=== PATIENT | male | born 1955 | race Caucasian/White ===

== ENCOUNTER → 2021-07-09 00:30 | Outpatient (CLI) | payer OTHER, SELFPAY ==
[2021-07-09 16:56] LABS: SARS-CoV-2 RNA PCR Positive
== END ==
PROVIDERS: PCP Family Medicine; Visit Provider Family Medicine
DX: U07.1 COVID-19 (principal)
CPT/HCPCS: C9803; U0003; U0005

== ENCOUNTER 2021-08-25 11:56 | Outpatient (CLI) | payer OTHER, SELFPAY ==
--- NOTE | ~2021-08-25 | XR_ITS ---
EXAMINATION: XR hip RT 2V w AP pelvis EXAM DATE: 08/25/2021 13:05 INDICATION: M25.551 - Pain in right hip. TECHNIQUE: Right hip frontal, 'frog leg' projections for interpretation. Frontal projection pelvis. There is no prior study for comparison. FINDINGS: There is severe right hip osteoarthritis with complete loss of the right hip joint space, s ome chronic flattening of the right femoral head. Could be secondary to avascular necrosis or other i njury given the asymmetry, that there is only mild contralateral primary osteoarthritis. There are no acute fractures or dislocations identified. There is no subcutaneous gas. The soft tissue is unrem arkable. There are no radiopaque foreign bodies. IMPRESSION: Severe right hip osteoarthritis. Reviewed, dictated and finalized at location A. TOR DRIVER
[2021-08-25 18:50] LABS: Hematocrit 45.3 % (42.0-52.0); Hemoglobin 14.4 g/dL (14.0-18.0); Mean Corpuscular HGB Conc 31.8 g/dl (32-36); Mean Corpuscular Hemoglobin 27.4 pg (26-34); Mean Corpuscular Volume 86.1 fl (80-100); Mean Platelet Volume 9.2 fl (7.4-10.4); Platelet Count Result 227 k/mm3 (150-375); Red Blood Count 5.26 M/mm3 (4.6-6.20); Red Cell Distribution Width 14.8 % (11.5-14.5)
[2021-08-25 19:09] LABS: Alanine Aminotransferase 21 U/L (4-50); Albumin Level 4.2 g/dL (3.5-5.1); Alkaline Phosphatase 126 U/L (38-126); Anion Gap 14 mmol/L (8-16); Aspartate Amino Transferase 23 U/L (17-59); Bilirubin,Total 0.9 mg/dL (0.2-1.3); Blood Urea Nitrogen 15 mg/dL (9-20); Calcium 9.4 mg/dL (8.4-10.2); Carbon Dioxide 24 mmol/L (22-30); Chloride 97 mmol/L (98-107); Cholesterol 237 mg/dL (0-200); Estimated Glomerular Filt Rate > 60; Glucose 290 mg/dL (65-110); HDL Direct 46 mg/dL; Potassium 4.4 mmol/L (3.4-5.0); Sodium 135 mmol/L (137-145); Triglycerides 254 mg/dL (<150)
[2021-08-25 19:25] LABS: LDL Cholesterol Direct 151 mg/dL
[2021-08-25 19:38] LABS: Prostate Specific Antigen 0.5 ng/mL (< OR = 4.0)
[2021-08-25 20:15] LABS: Free T4 Free Thyroxine Reflex 1.16 ng/dL (0.78-2.19)
[2021-08-25 20:59] LABS: Total Triiodothyronine (T3) 1.66 NG/ML (0.97-1.69)
== END 2021-08-25 11:57 | disposition home or self-care (01) ==
LOC: ANHBWCLAB 11:57
PROVIDERS: PCP Family Medicine; Visit Provider Family Medicine
DX: E11.9 Type 2 diabetes mellitus without complications (principal); D64.9 Anemia, unspecified; E66.9 Obesity, unspecified; M25.551 Pain in right hip
CPT/HCPCS: 36415; 73502; 80053; 80061; 83036; 84153; 84439; 84443; 84480; 85027; G0103

== ENCOUNTER 2022-02-24 15:02 | Outpatient (CLI) | payer OTHER, SELFPAY ==
[2022-02-24 20:09] LABS: Alanine Aminotransferase 18 U/L (6-50); Albumin Level 3.9 g/dL (3.5-5.1); Alkaline Phosphatase 111 U/L (38-126); Anion Gap 8 mmol/L (8-16); Aspartate Amino Transferase 22 U/L (17-59); Blood Urea Nitrogen 12 mg/dL (9-20); Calcium 8.6 mg/dL (8.4-10.2); Carbon Dioxide 26 mmol/L (22-30); Chloride 101 mmol/L (98-107); Cholesterol 208 mg/dL (0-200); Estimated Glomerular Filt Rate > 60; Glucose 198 mg/dL (65-110); HDL Direct 39 mg/dL; Potassium 4.2 mmol/L (3.4-5.0); Sodium 135 mmol/L (137-145); Triglycerides 173 mg/dL (<150); Uric Acid 7.7 mg/dL (3.5-8.5)
[2022-02-24 20:19] LABS: Hemoglobin A1C 9.1 % (<5.7)
[2022-02-24 20:21] LABS: LDL Cholesterol Direct 137 mg/dL
[2022-02-24 20:32] LABS: Creatinine Urine 310.9 mg/dL
[2022-02-24 20:37] LABS: MALB Creatinine Ratio 22.7 mg/g (0-30); Microalbumin Urine Random 70.7 mg/L (0-16.7)
== END 2022-02-24 15:03 | disposition home or self-care (01) ==
PROVIDERS: PCP Family Medicine; Visit Provider Family Medicine
DX: E11.9 Type 2 diabetes mellitus without complications (principal); M10.9 Gout, unspecified
CPT/HCPCS: 36415; 80053; 80061; 82043; 83036; 84550

== ENCOUNTER 2022-06-02 14:40 | Outpatient (CLI) | payer OTHER, SELFPAY ==
[2022-06-02 21:46] LABS: Hemoglobin A1C 7.4 % (<5.7)
== END 2022-06-02 14:41 | disposition home or self-care (01) ==
LOC: ANHBWCLAB 14:41
PROVIDERS: PCP Family Medicine; Visit Provider Family Medicine
DX: E11.9 Type 2 diabetes mellitus without complications (principal)
CPT/HCPCS: 36415; 83036

== ENCOUNTER 2023-07-12 13:54 | Outpatient (CLI) | payer MEDICARE, MEDICAID, SELFPAY ==
[2023-07-12 19:19] LABS: Creatinine Urine 150.3 mg/dL
[2023-07-12 19:23] LABS: MALB Creatinine Ratio 26.7 mg/g (0-30); Microalbumin Urine Random 40.1 mg/L (0-16.7)
[2023-07-12 19:28] LABS: Alanine Aminotransferase 16 U/L (6-50); Alkaline Phosphatase 102 U/L (38-126); Anion Gap 6 mmol/L (8-16); Aspartate Amino Transferase 26 U/L (17-59); Bilirubin,Total 1.1 mg/dL (0.2-1.3); Blood Urea Nitrogen 16 mg/dL (9-20); Calcium 8.8 mg/dL (8.4-10.2); Carbon Dioxide 26 mmol/L (22-30); Chloride 102 mmol/L (98-107); Cholesterol 230 mg/dL (0-200); Estimated Glomerular Filt Rate > 60; Glucose 149 mg/dL (65-110); HDL Direct 41 mg/dL; Potassium 4.6 mmol/L (3.4-5.0); Sodium 134 mmol/L (137-145); Triglycerides 106 mg/dL (<150)
[2023-07-12 19:39] LABS: LDL Cholesterol Direct 142 mg/dL
[2023-07-12 19:47] LABS: Basophils Percent Auto 0.5 % (0.2-1.2); Eosinophils Absolute Auto 0.2 K/mm3 (0-0.3); Eosinophils Percent Auto 2.3 % (0-4.4); Hemoglobin 13.9 g/dL (14.0-18.0); Immature Granulocyte Absolute 0.05 K/mm3 (0.00-0.031); Immature Granulocyte Percent A 0.6 % (0-0.5); Lymphocytes Absolute Auto 2.27 K/mm3 (0.9-3.2); Lymphocytes Percent Auto 27.3 % (18.3-44.2); Mean Corpuscular HGB Conc 30.9 g/dl (32-36); Mean Corpuscular Hemoglobin 27.1 pg (26-34); Mean Corpuscular Volume 87.9 fl (80-100); Mean Platelet Volume 9.6 fl (7.4-10.4); Monocytes Absolute Auto 0.5 K/mm3 (0.1-0.6); Monocytes Percent Auto 6.2 % (2.6-8.5); Neutrophils Absolute Auto 5.3 K/mm3 (1.3-6.7); Neutrophils Percent Auto 63.1 % (45.5-73.1); Platelet Count Result 239 k/mm3 (150-375); Red Blood Count 5.12 M/mm3 (4.6-6.20); Red Cell Distribution Width 14.3 % (11.5-14.5); White Blood Count 8.3 K/mm3 (4.5-10.0)
[2023-07-13 17:50] LABS: Prostate Specific Antigen 0.5 ng/mL (< OR = 4.0)
== END 2023-07-12 13:55 | disposition home or self-care (01) ==
PROVIDERS: PCP Family Medicine; Visit Provider Family Medicine
DX: E11.9 Type 2 diabetes mellitus without complications (principal); M10.9 Gout, unspecified; Z12.5 Encounter for screening for malignant neoplasm of prostate
CPT/HCPCS: 36415; 80053; 80061; 82043; 83036; 84153; 85025; G0103

== ENCOUNTER 2023-10-19 14:28 | Outpatient (CLI) | payer MEDICARE, MEDICAID, SELFPAY ==
[2023-10-25 14:59] LABS: Testosterone Free 53.8 pg/mL (35.0-155.0); Testosterone Total 289 ng/dL (250-1100)
== END 2023-10-19 14:29 | disposition home or self-care (01) ==
PROVIDERS: PCP Family Medicine; Visit Provider Family Medicine
DX: E11.9 Type 2 diabetes mellitus without complications (principal); E66.9 Obesity, unspecified; R06.00 Dyspnea, unspecified
CPT/HCPCS: 36415; 84402; 84403

== ENCOUNTER 2023-11-04 12:04 | Outpatient (CLI) | payer MEDICARE, MEDICAID, SELFPAY ==
[2023-11-07 15:18] LABS: Testosterone Free 40.3 pg/mL (35.0-155.0); Testosterone Total 184 ng/dL (250-1100)
== END 2023-11-04 12:05 | disposition home or self-care (01) ==
PROVIDERS: PCP Family Medicine; Visit Provider Family Medicine
DX: E66.9 Obesity, unspecified (principal)
CPT/HCPCS: 36415; 84402; 84403

== ENCOUNTER 2024-02-21 14:04 | Outpatient (CLI) | payer MEDICARE, MEDICAID, SELFPAY ==
[2024-02-21 19:31] LABS: Hematocrit 44.4 % (42.0-52.0); Hemoglobin 13.9 g/dL (14.0-18.0); Mean Corpuscular HGB Conc 31.3 g/dl (32-36); Mean Corpuscular Hemoglobin 27.1 pg (26-34); Mean Corpuscular Volume 86.5 fl (80-100); Mean Platelet Volume 9.9 fl (7.4-10.4); Platelet Count Result 234 k/mm3 (150-375); Red Blood Count 5.13 M/mm3 (4.6-6.20); Red Cell Distribution Width 14.3 % (11.5-14.5); White Blood Count 11.5 K/mm3 (4.5-10.0)
[2024-02-21 19:34] LABS: Creatinine Urine 232.4 mg/dL
[2024-02-21 19:37] LABS: MALB Creatinine Ratio 19.1 mg/g (0-30); Microalbumin Urine Random 44.4 mg/L (0-16.7)
[2024-02-21 20:10] LABS: Alanine Aminotransferase 15 U/L (6-50); Albumin Level 4.1 g/dL (3.5-5.1); Alkaline Phosphatase 81 U/L (38-126); Anion Gap 7 mmol/L (4-12); Aspartate Amino Transferase 34 U/L (17-59); Blood Urea Nitrogen 15 mg/dL (9-20); Calcium 8.9 mg/dL (8.4-10.2); Carbon Dioxide 27 mmol/L (22-30); Chloride 104 mmol/L (98-107); Estimated Glomerular Filt Rate > 60; Glucose 115 mg/dL (65-110); Potassium 4.2 mmol/L (3.4-5.0); Sodium 138 mmol/L (137-145)
[2024-02-21 21:43] LABS: Hemoglobin A1C 5.4 % (<5.7)
== END 2024-02-21 14:05 | disposition home or self-care (01) ==
PROVIDERS: PCP Family Medicine; Visit Provider Family Medicine
DX: D64.9 Anemia, unspecified (principal); E11.9 Type 2 diabetes mellitus without complications; E66.9 Obesity, unspecified; I10 Essential (primary) hypertension; R79.89 Other specified abnormal findings of blood chemistry
CPT/HCPCS: 36415; 80053; 82043; 83036; 85027

== ENCOUNTER 2024-09-18 13:06 | Outpatient (CLI) | payer MEDICARE, MEDICAID, SELFPAY ==
[2024-09-18 19:27] LABS: Hematocrit 42.9 % (42.0-52.0); Hemoglobin 14.2 g/dL (14.0-18.0); Mean Corpuscular HGB Conc 33.1 g/dl (32-36); Mean Corpuscular Hemoglobin 28.3 pg (26-34); Mean Corpuscular Volume 85.6 fl (80-100); Mean Platelet Volume 9.6 fl (7.4-10.4); Platelet Count Result 225 k/mm3 (150-375); Red Blood Count 5.01 M/mm3 (4.6-6.20); Red Cell Distribution Width 14.2 % (11.5-14.5); White Blood Count 7.5 K/mm3 (4.5-10.0)
[2024-09-18 19:28] LABS: Alanine Aminotransferase 13 U/L (6-50); Albumin Level 3.9 g/dL (3.5-5.1); Alkaline Phosphatase 85 U/L (38-126); Anion Gap 6 mmol/L (4-12); Aspartate Amino Transferase 30 U/L (17-59); Bilirubin,Total 1.4 mg/dL (0.2-1.3); Blood Urea Nitrogen 11 mg/dL (9-20); Calcium 8.9 mg/dL (8.4-10.2); Carbon Dioxide 28 mmol/L (22-30); Chloride 103 mmol/L (98-107); Estimated Glomerular Filt Rate > 60; Glucose 100 mg/dL (65-110); Potassium 3.8 mmol/L (3.4-5.0); Sodium 137 mmol/L (137-145)
[2024-09-18 20:30] LABS: Creatinine Urine 171.5 mg/dL
[2024-09-18 20:33] LABS: MALB Creatinine Ratio 38.1 mg/g (0-30); Microalbumin Urine Random 65.3 mg/L (0-16.7)
[2024-09-18 21:06] LABS: Hemoglobin A1C 5.1 % (<5.7)
== END 2024-09-18 13:07 | disposition home or self-care (01) ==
PROVIDERS: PCP Family Medicine; Visit Provider Family Medicine
DX: E11.9 Type 2 diabetes mellitus without complications (principal); D64.9 Anemia, unspecified; I10 Essential (primary) hypertension; I63.9 Cerebral infarction, unspecified; R79.89 Other specified abnormal findings of blood chemistry; M10.9 Gout, unspecified; Z12.11 Encounter for screening for malignant neoplasm of colon
CPT/HCPCS: 36415; 80053; 82043; 83036; 85027

== ENCOUNTER 2025-05-21 13:34 | Outpatient (CLI) | payer MEDICARE, MEDICAID, SELFPAY ==
--- OUTSIDE RECORDS SUMMARY | 2025-05-21 13:41 | XMS_ITS | Clinical Summary ---
Author Organization [facility] Address [address] [place] [address] Phone Care Team Providers Care Weight Count Operator Name Role Phone Marcia Ruiz Primary Care Provider [phone] Allergies No known active allergies Medications acetaminophen (TYLENOL) 325 MG Tablet Take 650 mg by mouth every 4 hours as needed. Active metFORMIN (GLUCOPHAGE) 500 MG Tablet Take 500 mg by mouth daily. Active ALLOPURINOL PO Take 100 mg by mouth daily as needed. Active Misc Natural Products (TART BECK ADVANCED PO) Take by mouth daily. Active indomethacin (INDOCIN) 50 MG CapsuleIndications:USU ALLY TAKES 3 TIMES A WEEK IN COMBINATION W/TYLENOL Take 50 mg by mouth daily as needed. Indications: USUALLY TAKES 3 TIMES A WEEK IN COMBINATION W/TYLENOL Active losartan 50 MG TABS 50 mg, hydroCHLOROthiazide 12.5 MG TABS 12.5 mgIndications:USUALLY TAKES 4-5 DAYS A WEEK Take by mouth daily. Indications: USUALLY TAKES 4-5 DAYS A WEEK Active aspirin 325 MG Tablet Take 1 Tab by mouth daily. 100 Tab 019 Active insulin glargine (LANTUS) 100 UNIT/ML Solution 40 Units by Subcutaneous route nightly. 1 Vial 019 Active insulin lispro (HUMALOG) 100 UNIT/ML Solution Inject 18 units SQ with each meal and if BS: 71 - 140 NO INSULIN 141 - 155 NO INSULIN 156 - 170 NO INSULIN 171 - 185 +1 UNITS 186 - 200 +2 UNITS 201 - 215 +3 UNITS 216 - 230 +4 UNITS 231 - 245 +5 UNITS 246 - 260 +6 UNITS 261 - 275 +7 UNITS 276 - 290 +8 UNITS 291 - 300 +9 UNITS ABOVE 300 +10 UNITS 1 Vial 019 Active Active Problems Problem Noted Date Diagnosed Date Primary osteoarthritis of both knees 04/05/2019 Family History Medical History Relation Name Comments Alcohol Abuse Father Cancer Father Cancer Mother Relation Name Status Comments Father Mother Social History Tobacco Use Types Packs/Day Years Used Date Smoking Tobacco: Never Smokeless Tobacco: Never Alcohol Use Standard Drinks/Week Comments Not Currently 0 (1 standard drink = 0.6 oz pur e alcohol) HASN'T DRANK SINCE AGE 42 Sex and Gender Information Value Date Recorded Sex Assigned at Not on file Legal Sex Male 10:18 PM CDT Gender Identity Not on file Sexual Orientation Not on file Last Filed Vital Signs Vital Sign Reading Time Taken Comments Blood Pressure 119/78 04/11/2019 3:41 PM CDT Pulse 71 04/11/2019 3:41 PM CDT Temperature 36.8 C (98.2 F) 04/11/2019 3:41 PM CDT Respiratory Rate 18 04/11/2019 3:41 PM CDT Oxygen Saturation 95% 04/11/2019 8:2 5 AM CDT Inhaled Oxygen Concentration - - Weight 172.4 kg (380 lb) 04/05/2019 9:2 5 AM CDT pt states 380-390 Height 175.3 cm (5' 9) 04/05/2019 9:25 AM CDT Body Mass Index 56.12 04/05/2019 9:25 AM CDT Plan of Treatment Health Maintenance Due Date Last Done Comments Hepatitis C Virus (HCV) Screening 1957 Cologuard 2002 Colonoscopy 2002 Colorectal Cancer Screening 2002 Immunochemical Fecal Occult Blood 2002 Pneumococcal Immunization (5 0+ years) (1 of 1 - PCV) 2007 Zoster Immunization (1 of 2) 2007 SARS-COV-2 Immunization (4 - season) 2024 10/09/2021, 02/02/2021, 01/12/2021 Influenza Immunization (#1) 2025 10/20/2016 Respiratory Syncytial Virus (RSV) Immunization (Adult) (1 - 1-dose 75+ series) 2032 DTaP/Tdap/Td Immunization Discontinued 03/15/2018 TdaP Immunization Completed 03/15/2018 Hepatitis B Immunization Aged Out No longer eligible based on patient's age to complete this topic Human Papillomavirus (HPV) Immunization Aged Out No longer eligible based on patient's age to complete this topic Meningococcal Immunization (ACWY) Aged Out No longer eligible based on patient's age to complete this topic Rotavirus Immunization Aged Out No lo nger eligible based on patient's age to complete this topic Medical Devices Implanted Type Area Header Set Up Operator Device Identifier Shelf Expiration Date Model / Serial / Lot Insert Tib 5 9mm Knee X3 Cruciate Substitute Triathlon - [id number] Implanted:Qty: 1 on 04/05/2019 by [facility] IMPLANT Right: Knee [employer] 01/18/2024 5531-G-509 / 5531-G-509 / [id number] Component Fem 5 Knee Right Cruciate Retain Bead [employer]lon Pa - [id number] Implanted:Qty: 1 on 04/05/2019 by [facility] at [facility] IMPLANT Right: Knee [employer] 02/13/2024 5517-F-502 / [id number]-F-502 / [id number] Insert Tib 7 9mm Knee X3 Cruciate Substitute [employer]lon - [id number] Implanted:Qty: 1 on 04/05/2019 by Angel [facility]blood MD at [facility] IMPLANT Left: Knee [employer] 10/22/2023 5531-G-709 / 5531-G-709 / [id number] Knee Femoral Component Beaded With Pa Cementless Cruciate Retaining Triathlon Left Size 6 - [id number] Implanted:Qty: 1 on 04/05/2019 by Angel Youngblood MD at [facility] IMPLANT Left: Knee [employer] 09/23/2022 5517-F-601 / 5517-F-601 / [id number] Floseal Hemostatic Matrix, 10 Ml Implanted:Qty: 2 on 04/05/2019 by Angel Youngblood MD at [facility] Bilatera l: Knee [employer] 07/21/2020 [id number] / [id number] / [id number] Triathlon Tritanium Tibial Component Implanted:Qty: 1 on 04/05/2019 by Angel Youngblood MD at [facility] Right: Knee LIVE 02/09/2024 5536-B-500 / 5536-B-500 / [id number] [employer]lon Tritanium Asymmetric Patella Implanted:Qty: 1 on 04/05/2019 by Angel Youngblood MD at [facility] Right: Knee LIVE / ORTHOPAEDICS 12/10/2022 5552-L-401 / 5552-L-401 / [id number] [employer]lon Tritanium Tibial Component Implanted:Qty: 1 on 04/05/2019 by Angel Youngblood MD at [facility] Left: Knee LIVE / ORTHOPAEDICS 11/01/2023 5536-B-700 / 5536-B-700 / [id number] [employer]lon Tritanium Asymmetric Patella Implanted:Qty: 1 on 04/05/2019 by Angel Youngblood MD at [facility] Left: Knee [employer] / ORTHOPAEDICS 07/25/2023 5552-L-401 / 5552-L-401 / [id number] Insurance [place]ID [place] Care Teams Weight Count Operator Relationship Specialty Start Date End Date Marcia Ruiz PA [address] [address] PCP - General Adult Medicine 01/23/19
--- OUTSIDE RECORDS SUMMARY | 2025-05-21 13:41 | XMS_ITS | Encounter Summary ---
Author Organization [facility] Address [address] [place] [address] Care Team Providers Care Environmental Services Supervisor Name Role Phone Tash Marr PT Unavailable Unavailable Angel Youngblood MD Unavailable [phone] Alma Delia Antonio DO Primary Care Provider [phone] Francesco Camara PT Unavailable Unavailable Nav Love MD Primary Care Provider [phone] Reason for Visit * Reason Onset Date Comments Scheduling Appointments 03/21/2020 Called f or fluoro guided injection appointment Encounter Details Date Type Department Care Team (Late st Contact Info) Description 03/21/2020 Telephone [facility] [address] [place] [id number] [address] Skelton RT Scheduling Appointments (Called for fluoro guided injection appointment) Social History Tobacco Use Types Packs/Day Years Used Date Smoking Tobacco: Never Smokeless Tobacco: Never Alcohol Use Standard Drinks/Week Comments No 0 (1 standard drink = 0.6 oz pur e alcohol) PHQ-2 Answer Date Recorded PHQ-2 Score 0 11/20/2019 Sex and Gender Information Value Date Recorded Sex Assigned at Not on file 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 Gender Identity Male 04/21/2020 2:30 PM CDT Sexual Orientation Straight 03/13/2020 1: 43 PM CDT documented as of this encounter Plan of Treatment Not on file documented as of this encounter Visit Diagnoses Not on filedocumented in this encounter Care Teams Environmental Services Supervisor Relationship Specialty Start Date End Date Alma Delia Antonio DO [address] [place] [address] PCP - General Family Medicine 11/20/19 01/29/23 Nav Love MD PCP - General Family Practice 01/30/23 Tash Marr, PT Physical Therapist Physical Therapy 11/05/17 Angel Youngblood MD [address] [place] [address] Surgeon Orthopedic Surgery 10/30/19 Francesco Camara, PT Physical Therapist Physical Therapy 07/10/22 documented as of this encounter
--- OUTSIDE RECORDS SUMMARY | 2025-05-21 13:41 | XMS_ITS | Clinical Summary ---
Author Organization [facility] Address [address] [place] [address] Care Team Providers Care Fence Maker Name Role Phone Danyel Joyce MD Primary Care Provider [phone] Source Comments [facility],non-owned Affiliates and Associated Physician Practices is amultiple site organization consisting of ambulatory clinics and hospital sitesin [place], [place], [place] and [place]. This disclosure is being madepursuant to the Care Everywhere program and may not contain all information available regarding this patient. Last updated 18.[facility] Allergies Active Allergy Reactions Criticality Noted Date Comments Empagliflozin GI Discomfort 02/08/2025 Meloxicam Nausea and/or Vomiting Low 04/11/2020 Medications * Be aware that medications may not be up to date on this document. Alwaysverify current medications with the patient. losartan - hydroCHLOROthiazide (HYZAAR) 50-12.5 MG tablet Take by mouth. 9 10/20/19 17 Active indomethacin (INDOCIN) 50 MG capsule Take 50 mg by mouth TID. 12/10/19 17 Active amoxicillin (AMOXIL) 500 MG capsule Take 500 mg by mouth TID. 12/10/19 17 Active allopurinol (Zyloprim) 300 MG tablet Take 1 (one) tablet by mouth once daily as needed Active acetaminophen (Tylenol) 325 MG tablet Take 2 (two) tablets by mouth every 4 hours as needed Active metFORMIN (Glucophage) 500 MG tablet Take 1 (one) tablet by mouth once daily Active sildenafil (Viagra) 25 MG tablet TAKE 1 TABLET BY MOUTH 30 MINUTES TO 4 HOURS PRIOR TO SEXUAL ACTIVITY 09/18/20 24 Active Tirzepatide (Mounjaro) 15 MG/0.5ML SOPN ADMINISTER 15 MG UNDER THE SKIN WEEKLY 07/10/20 24 Active Active Problems No known active problems Encounters Date Type Department Care Team Description 02/28/2025 2:30 PM CDT Office Visit [facility] [address], [address] [place] [phone] Ngoc Ramirez PA-C Primary osteoarthritis of right hip (Primary Dx); BMI 50.0-59.9, adult ([facility]) 02/28/2025 2:10 PM CDT Ancillary Procedure [facility] - Radiology [address] [place] [id number] Ngoc Ramirez PA-C Primary osteoarthritis of right hip from Last 3 Months Social History Tobacco Use Types Packs/Day Years Used Date Smoking Tobacco: Never Smokeless Tobacco: Never Alcohol Use Standard Drinks/Week Comments No 0 (1 standard drink = 0.6 oz pur e alcohol) PHQ-2 Answer Date Recorded Patient Health Questionnaire-2 Score 0 02/21/2025 Sex and Gender Information Value Date Recorded Sex Assigned at Not on file Legal Sex Male 5:[address] REPORTER Gender Identity Not on file Sexual Orientation Not on file Last Filed Vital Signs Vital Sign Reading Time Taken Comments Blood Pressure 170/111 01/07/2017 1:05 PM CDT Pulse 63 01/07/2017 1:05 PM CDT Temperature 36.7 C (98 F) 01/07/2017 1:05 PM CDT Respiratory Rate - - Oxygen Saturation 96% 01/07/2017 1:05 PM CDT Inhaled Oxygen Concentration - - Weight 147.4 kg (325 lb) 02/28/2025 2:45 PM CDT Height 170.2 cm (5' 7) 02/28/2025 2:45 PM CDT Body Mass Index 50.9 02/28/2025 2:45 PM CDT Plan of Treatment Upcoming Encounters Date Type Department Care Team (Latest Contact Info) Description 05/28/2025 9:20 AM CDT Office Visit [facility] [address], [address] [place] [phone] [place] [address] [address] [address] 07/05/2025 7:15 AM CDT Hospital Encounter [facility] access hospital - Perioperative Surgery [id number] [place] [address] [place] [address] [address] [address] Surgery General 07/05/2025 7:15 AM CDT - 07/05/2025 10:01 AM CDT Surgery Critical access hospital - Perioperative Surgery [address] [place] [address] [place] [address] [address] [address] ARTHROPLASTY RIGHT TOTAL HIP (ANTERIOR) 07/24/2025 9:45 AM CDT Office Visit [facility] [address] [place] [phone] Ngoc Ramirez [place]anaC [address] [address] [address] 08/20/2025 10:[address] REPORTER Office Visit [address] [phone] [place] [address] [address] [address] 10/01/2025 9:[address] REPORTER Office Visit [facility] [address] [place] [phone] [place] [address] [address] [address] Scheduled Procedures Name Priority Associated Diagnoses Date/Ti me ARTHROPLASTY TOTAL HIP (ANTERIOR) 07/05/2025 7:15 AM C DT Health Maintenance Due Date Last Done Comments COLOGUARD (AGES 45-75) - COLON CA SCREENING 1957 COLON MONITORING 1957 COLONOSCOPY - COLON CA SCREENING 1957 CT COLONOGRAPHY - COLON CA SCREENING 1957 Colorectal Cancer Screening 1957 FIT - COLON CA SCREENING 1957 FLEX SIG - COLON CA SCREENING 1957 MEDICARE AWV 12 MONTHS 1957 HEPATITIS C SCREENING 06/12/1975 DTAP/TDAP/TD VACCINES (1 - Tdap) 1976 PNEUMOCOCCAL VACCINE 50+ (1 of 1 - PCV) 2007 ZOSTER VACCINE (1 of 2) 2007 Respiratory Syncytial Virus (RSV) Vaccine Pt: or over 60 yrs (1 - Risk 60-74 years 1-dose series) 2017 COVID-19 VACCINE (1 - 2023- season) 2024 INFLUENZA VACCINE (#1) 2025 09/01/2019, 2016 SCREENING FOR DIABETES 01/31/2026 , 01/31/2023, 01/30/2023, Additional history exists LIPID TESTING 02/01/2028 01/31/2023 DEPRESSION SCREENING Completed 02/08/2025 HEPATITIS B VACCINE Aged Out No longe r eligible based on patient's age to complete this topic HIB VACCINE Aged Out No longer eligi ble based on patient's age to complete this topic HPV VACCINE Aged Out No longer eligi ble based on patient's age to complete this topic MENINGOCOCCAL (Group B) VACCINE SHARED DECISION-MAKING Aged Out No longer eligible based on patient's age to complete this topic MENINGOCOCCAL GROUPS A/C/Y/W VACCINE Aged Out No longer eligible based on patient's age to complete this topic Goals Goal Patient Goal Type Associated Problems Recent Progress Patient-Stated? Author Autogenerat ed Goal Care Plan Autogenerated Problem No Kathleen Carter Procedures Procedure Name Priority Date/Time Associated Diagnosis Comments XR HIP RIGHT 2VW OR MORE Routine 02/28/2025 2:12 PM CDT Primary osteoarthritis of right hip from Last 3 Months Results * XR Hip Right 2Vw or More (02/28/2025 2:12 PM CDT) Narrative [facility] [address] - 02/28/2025 2:13 PM CDT Please see progress note in Epic for results. Ngoc Ramirez PA-C DIAGNOSTIC IMAGING ORDERAB LES Final Result [facility] [address] from Last 3 Months Additional Health Concerns Active Problems Noted Date Diagnosed Date Autogenerated Problem 03/01/2025 Insurance MEDICARE [facility] Care Teams Fence Maker Relationship Specialty Start Date End Date Danyel Joyce MD PCP - General 12/10/16
--- OUTSIDE RECORDS SUMMARY | 2025-05-21 13:41 | XMS_ITS | Clinical Summary ---
Author Organization [facility] Medical Office Building B Address [address] [place] [address] Care Team Providers Care Wire Coiler Name Role Phone Tash Marr PT Unavailable Unavailable Angel Youngblood MD Unavailable [phone] Francesco Camara PT Unavailable Unavailable Nav Love MD Primary Care Provider [phone] Allergies Active Allergy Reactions Criticality Noted Date Comments Meloxicam Nausea only Low 04/11/2020 Medications acetaminophen (TYLENOL) 325 mg tablet take 2 tablet by oral route every 6 hours as needed 0 0 05/27/2015 Active montserrat.stockin g,knee,reg,smal (T.E.D. ANTI-EMBOLISM STOCKING) misc Use ddaily during waking hours for control of edema. 20-30 mmHg pressure 12 each 2 05/19/2017 Active allopurinoL (ZYLOPRIM) 300 mg tablet Take 1 tablet (300 mg total) by mouth daily as needed Active aspirin 81 mg enteric coated tablet Take 1 tablet (81 mg total) by mouth daily 30 tablet 02/03/2023 Active atorvastatin (LIPITOR) 40 mg tablet Take 1 tablet (40 mg total) by mouth daily 30 tablet 02/03/2023 Active clopidogreL (PLAVIX) 75 mg tablet Take 1 tablet (75 mg total) by mouth daily 30 tablet 02/03/2023 Active cyclobenzaprine (FLEXERIL) 5 mg tablet Take 1 tablet (5 mg total) by mouth 2 (two) times a day as needed for muscle spasms 60 tablet 02/03/2023 Active empagliflozin (JARDIANCE) 10 mg tablet Take 1 tablet (10 mg total) by mouth daily 30 tablet 3 02/03/2023 Active Mounjaro 12.5 mg/0.5 mL pen injector 02/16/2024 Active Active Problems Problem Noted Date Diagnosed Date Primary localized osteoarthritis of right hip Morbid obesity 01/31/2023 Type 2 diabetes mellitus wit hout complication, without long-term current use of insulin 01/31/2023 Cerebrovascular accident (CVA), unspecified mech anism 01/30/2023 Other hydrocele 03/22/2020 Overview (03/22/2020): Added automatically from request for surgery [id number] Testicular pain, unspecified 12/13/2019 Elevated glucose 12/04/2019 Chronic gout of multiple sites 11/20/2019 Assessment & Plan (11/20/2019 2:21 PM ELECTRONICS DETAIL DRAFTSPERSON): Clinically resolved according to patient. Labs ordered. He discontinued his allopurinol on his on, a while ago. Hypertension, essential 11/20/2019 Assessment & Plan (11/20/2019 2:20 PM ELECTRONICS DETAIL DRAFTSPERSON): Clinically improved. Decrease losartan 100 mg every day to 50 mg every day. Pure hypercholesterolemia 11/20/2019 Assessment & Plan (11/20/2019 2:20 PM ELECTRONICS DETAIL DRAFTSPERSON): Cont dietary modifications. Labs ordered. Class 3 severe obesity due t o excess calories with serious comorbidity and body mass index (BMI) of 60.0 to 69.9 in adult 11/20/2019 Assessment & Plan (11/20/2019 2:22 PM ELECTRONICS DETAIL DRAFTSPERSON): Did not weigh today. Encouraged dietary modifications and weight reduction. Chronic pain of right hip 11/20/2019 Glenohumeral arthritis 04/19/2018 Primary osteoarthritis of right knee 04/16/2017 Bilateral primary osteoarthritis of knee 017 Resolved Problems Problem Noted Date Diagnosed Date Resolved Date Morbid obesity with BMI of 60.0-69.9, adult 04/16/2017 11/20/2019 Immunizations Immunization Administration Dates Next Due Influenza, Quadrivalent, Split, Intramuscular Influenza, Unspecified 09/01/2019 Tdap 03/15/2018 Surgical History Surgery Date Site/Laterality Comments FLUORO GUIDED INJECTION HIP RIGHT 03/22/2020 Right JOINT REPLACEMENT Bilateral knee HYDROCELE EXCISION / REPAIR FLUORO GUIDED INJECTION HIP RIGHT 07/01/2023 Right Medical History Medical History Date Comments Gout Gout Osteoarthritis Osteoarthritis; Comments: OAC 05/27/2015 -; Laterality: bilateral Morbid obesity (HCC) Severe obes ity; Comments: OAC 05/27/2015 - Hx Other Medical History of Hydr ocele Morbid obesity with BMI of 6 0.0-69.9, adult (HCC) 04/16/2017 Family History Medical History Relation Name Comments Esophageal cancer Father Cancer, es ophageal; Cause of : Cancer, esophageal Lung cancer Mother Cancer, lung; Relation Name Status Comments Father Mother Social History Tobacco Use Types Packs/Day Years Used Date Smoking Tobacco: Never Smokeless Tobacco: Never Alcohol Use Standard Drinks/Week Comments No 0 (1 standard drink = 0.6 oz pur e alcohol) PHQ-2 Answer Date Recorded PHQ-2 Total Score (If total score is 3 or more points, staff should administer the PHQ-9) 0 01/30/2023 Personal Safety Answer Date Recorded Getting School Help Needed Not on file 01/31 Sex and Gender Information Value Date Recorded Sex Assigned at Not on file Legal Sex Male 2:57 AM ELECTRONICS DETAIL DRAFTSPERSON Gender Identity Male 04/21/2020 2:30 PM CDT Sexual Orientation Straight 03/13/2020 1: 43 PM CDT Obstetrics History Last Filed Vital Signs Vital Sign Reading Time Taken Comments Blood Pressure 158/91 04/03/2024 2:20 PM CDT Pulse 77 04/03/2024 2:20 PM CDT Temperature 36.7 C (98 F) 02/03/2023 10:52 AM CDT Respiratory Rate 20 02/03/2023 10:52 AM CDT Oxygen Saturation 95% 02/03/2023 10:52 AM CDT Inhaled Oxygen Concentration - - Weight 167.4 kg (369 lb) 04/03/2024 2:20 PM CDT Height 170.2 cm (5' 7) 04/03/2024 2:20 PM CDT Body Mass Index 57.79 04/03/2024 2:20 PM CDT Plan of Treatment Health Maintenance Due Date Last Done Comments Albumin Creatinine Ratio, Urine 1955 Dilated Eye Exam 1955 Foot Exam 1955 Hepatitis B Screening 1975 Pneumococcal vaccine 65+ (1 of 2 - PCV) 1976 Zoster Vaccine (1 of 2) 2007 Prostate Cancer Screening-PSA 10/04/2019 10/04/2017 Abdominal Aortic Aneurysm (A AA) Screen 2022 04/16/2020 Well Visit 65+ 2022 Colon Cancer Screening-DNA Stool 12/18/2022 12/19/19 20 Hemoglobin A1C 08/02/2023 01/31/2023 Depression Screening 01/31/2024 01/30/2023, 11/20/2019, 05/05/2017 eGFR 01/31/2024 01/30/2023, 03/20, 04/08/2020, Additional history exists Lipid Panel 02/01/2024 01/31/2023, 12/2019, 10/04/2017, Additional history exists Fall Risk Assessment 02/04/2024 02/03/2023 Influenza Vaccine (#1) 2025 09/01/2019, 2016 DTaP/Tdap/Td Vaccine (2 - Td or Tdap) 03/15/2028 03/15/2018 Hepatitis C Screening Completed 11/20/2019 Procedures Procedure Name Priority Date/Time Associated Diagnosis Comments HEMOGLOBIN A1C Routine 01/31/2023 2:16 AM CDT LIPID PANEL Routine 01/31/2023 2:16 AM CDT EGFR STAT 01/30/2023 3:[address] ABDOMEN PELVIS W CONTRAST ED 04/16/2020 4:46 AM CDT HM DNA STOOL Routine 12/19/2019 HEPATITIS C ANTIBODY Routine 11/20/2019 2:25 PM ELECTRONICS DETAIL DRAFTSPERSON Encounter for hepatitis C screening test for low risk patient PSA SCREEN Routine 10/04/2017 1:55 PM ELECTRONICS DETAIL DRAFTSPERSON from Last 3 Months or Most Recently Relevant to Health Maintenance Results * (ABNORMAL) Hemoglobin A1c (01/31/2023 2:16 AM CDT) Hgb A1C 7.8(H) 4.0 - 5.6 % [facility] ([facility]) Estimated Average Glucose 177 mg/dL [facility] ([facility]) Comment: The ADA recommends reporting an estimated Average Glucose (eAG) with all Hemoglobin A1c results using the equation derived from a study of 507 normal and diabetic adults. Minority populations were underrepresented and children were not included. (Diabetes Care 31:2343-8620, 2008). The eAG is not equivalent to a fasting glucose. Blood 01/31/2023 2:16 AM CDT 01/31/2023 4:20 AM CDT us Velvet Abraham MD LAB BLOOD ORDERABLE S Final Result [facility] ([place]) [address] [facility] [place] [address] * (ABNORMAL) Lipid panel (01/31/2023 2:16 AM CDT) Cholesterol 189 30 - 199 mg/dL [facility] ([place]) Comment: Interpretive Data Ages < or = 19 years Acceptable: <170 mg/dL Borderline high: 170-199 mg/dL High: >or= 200 mg/dL Ages > or = 20 years Desirable: <200 mg/dL Borderline high: 200-239 mg/dL High: >or= 240 mg/dL Literature References: 1. Expert Panel on Integrated Guidelines for Cardiovascular Health and Risk Reduction in Children and Adolescents. Pediatrics 2011;128:S213 2. NCEP Expert Panel. Circulation 2004;110:227 Current Interpretive Data was last revised on 2018. Triglycerides 161(H) <=149 mg/dL [facility] ([facility]) Comment: Interpretive Data Ages < or = 9 years Acceptable: <75 mg/dL Borderline high: 75-99 mg/dL High: >or= 100 mg/dL Ages 10 to 20 years Acceptable: <90 mg/dL Borderline high: 90-129 mg/dL High: >or= 130 mg/dL Ages > or = 20 years Desirable: <150 mg/dL Borderline high: 150-199 mg/dL High: 200-499 mg/dL Very high: >or= 499 mg/dL Literature References: 1. Expert Panel on Integrated Guidelines for Cardiovascular Health and Risk Reduction in Children and Adolescents. Pediatrics 2011;128:S213 2. NCEP Expert Panel. Circulation 2004;110:227 Current Interpretive Data was last revised on 2018. HDL 36(L) >=40 mg/dL [facility] ([facility]) Comment: Interpretive Data Ages < or = 19 years Acceptable: >45 mg/dL Borderline low: 40-45 mg/dL Low: <40 mg/dL Ages > or = 20 years Desirable: >or= 60 mg/dL Low: <40 mg/dL Literature References: 1. Expert Panel on Integrated Guidelines for Cardiovascular Health and Risk Reduction in Children and Adolescents. Pediatrics 2011;128:S213 2. NCEP Expert Panel. Circulation 2004;110:227 Current Interpretive Data was last revised on 2018. LDL, calculated 121 <=129 mg/dL [facility] ([facility]) Comment: Interpretive Data Ages < or = 19 years Acceptable: <110 mg/dL Borderline high: 110-129 mg/dL High: >or= 130 mg/dL Ages > or = 20 years Optimal: <100 mg/dL Near optimal: 100-129 mg/dL Borderline high: 130-159 mg/dL High: >160 mg/dL Literature References: 1. Expert Panel on Integrated Guidelines for Cardiovascular Health and Risk Reduction in Children and Adolescents. Pediatrics 2011;128:S213 2. NCEP Expert Panel. Circulation 2004;110:227 Current Interpretive Data was last revised on 2018. Non-HDL Cholesterol 153 mg/dL [facility] ([facility]) Comment: Interpretive Data Ages < or = 19 years Acceptable: <120 mg/dL Borderline high: 120-144 mg/dL High: >145 mg/dL Ages > or = 20 years When triglycerides are >200 mg/dL, Non-HDL cholesterol is a secondary target of therapy with treatment goals that are 30 mg/dL greater than the LDL cholesterol target. Literature References: 1. Expert Panel on Integrated Guidelines for Cardiovascular Health and Risk Reduction in Children and Adolescents. Pediatrics 2011;128:S213 2. NCEP Expert Panel. Circulation 2004;110:227 Current Interpretive Data was last revised on 2018. Chol/HDL ratio 5 MAGUI Renee [facility] ([facility]) Blood 01/31/2023 2:16 AM CDT 01/31/2023 4:20 AM CDT Velvet Abraham MD LAB BLOOD ORDERABLE S Final Result Performing Organization Address City/[facility]/ZIP Co de Phone Number [facility] ([facility]) [address] [facility] [place] [address] * eGFR (01/30/2023 3:51 PM CDT) eGFR 97 mL/min/1. 73 m2 [facility] ([facility]) Comment: Interpretive Data Reference Interval Normal >/= 90 mL/min/1.73m2 Mildly decreased* 60 - 89 mL/min/1.73m2 Mildly to moderately decreased 45 - 59 mL/min/1.73m2 Moderately to severely decreased 30 - 44 mL/min/1.73m2 Severely decreased 15 - 29 mL/min/1.73m2 Kidney Failure < 15 mL/min/1.73m2 *Relative to young adult level Estimated glomerular filtration rate is determined by the 2020 CKD-EPI equation recommended by the National Kidney Foundation (A Unifying Approach to GFR Estimation: Recommendations of the NKF-ASK Task Force on Reassessing the Inclusion of Race in Diagnosing Kidney Disease, JASN 2020). The CKD-EPI equation should not be used for patients with unstable renal function and has not been validated in children and those over 70. Current interpretive data was last reviewed 2021. Blood 01/30/2023 3:51 PM CDT 01/30/2023 3:54 PM CDT Velvet Abraham MD LAB BLOOD ORDERABLE S Final Result Performing Organization Address City/[facility]/ZIP Co de Phone Number [facility] ([place]) 1 [facility] [place] [address] * CT Abdomen Pelvis W Contrast (04/16/2020 4:46 AM CDT) Anatomical Region Laterality Modality Body N/A Computed Tomogra phy 04/16/2020 4:30 AM CDT Impressions 04/16/2020 5:24 AM CDT 1. Prominent right-sided scrotal soft tissue swelling and fluid. 2. Foci of air within the right scrotum, compatible with recent surgery. 3. There appears to be air within the remnant of the right testicle, compatible with the history of partial orchiectomy. Correlation with surgical history is recommended. THIS IS AN ELECTRONICALLY VERIFIED FINAL REPORT 04/16/2020 5:21 AM - Electronically signed by Forrest Mcneill M.D. AT: AT Report ID: [id number] Reading Location: [id number] [facility] 04/16/2020 5:24 AM CDT [facility] Imaging Result Name: AAMIR LINDA Ordering Phys: NANCY LOPEZ Age: 64 Date of : 1955 Accession Number: [id number] Date of Service: 04/16/2020 Gender: M EXAM DESCRIPTION: CT ABDOMEN PELVIS W CONTRAST REASON FOR STUDY: 64 y.o. male nonsmoker with a h/o HTN, HLD, osteoarthritis, gout, and morbid obesity presenting to the ED via private vehicle c/o worsening moderate right testicle swelling first noticed two days ago. Pt reports no associated sx. He denies fever, SOB, NV, abd pain, or testicle pain. There are no alleviating or exacerbating factors. Pt reports that he has a 2 year h/o enlarged testicle that was surgically corrected by Dr. Bray a few days ago but has returned and its current state is significantly worse than prior to procedure. 100ML Opti 320 via 20G right hand. To include testicles per ERPadditional imaging performed due to the size of the patientDuration: 2 days TECHNIQUE: CT scan of the abdomen and pelvis performed with intravenous and without oral contrast using helical scanning technique with dynamic intravenous contrast injection. Reconstructed coronal and sagittal MPR images reviewed. All images stored on PACS. Automated exposure control was used as a dose optimization technique for this examination. CONTRAST TYPE/DOSE: 100 of opti 320 injected via right hand COMPARISON: None available LOWER CHEST: Mild reticular opacities within the lung bases are compatible with subsegmental atelectasis. LIVER: Hypoenhancing mass within the inferior right hepatic lobe is noted, compatible with a cyst as it measures fluid density. GALLBLADDER: Moderately distended with fluid, otherwise unremarkable. BILE DUCTS: No intrahepatic or extrahepatic ductal dilatation. SPLEEN: Normal size. No focal lesions. PANCREAS: There is no evidence of a pancreatic mass or significant peripancreatic inflammation. ADRENALS: Normal. KIDNEYS/URINARY TRACT: Kidneys demonstrate customary postcontrast enhancement. There is no evidence of hydronephrosis. Bladder is decompressed. GI: There is no evidence bowel obstruction. A portion of the left lateral abdomen is excluded from view. Appendix originates around axial image 99, and is within normal limits in size. There is no evidence of small-bowel obstruction. PERITONEUM: No ascites or free air. RETROPERITONEUM: No mass or adenopathy. REPRODUCTIVE: There is prominent scrotal soft tissue swelling and fluid, more pronounced on the right. Several foci of air are noted within the perineum, and the right aspect of the scrotum. There is gas within what is presumed to be the right testicle, likely related to history of partial orchiectomy. Left-sided hydrocele is noted, less pronounced. VASCULATURE: Aorta demonstrates normal course and caliber. MUSCULOSKELETAL: Mild-moderate osteoarthritic changes of the spine are present. OTHER: No other abnormality. Procedure Note Forrest Mcneill MD - 04/16/2020 [facility] Imaging Result Name: AAMIR LINDA Ordering Phys: NANCY LOPEZ Age: 64 Date of : 1955 Accession Number: [id number] Date of Service: 04/16/2020 Gender: M EXAM DESCRIPTION: CT ABDOMEN PELVIS W CONTRAST REASON FOR STUDY: 64 y.o. male nonsmoker with a h/o HTN, HLD, osteoarthritis, gout, and morbid obesity presenting to the ED viaprivate vehicle c/o worsening moderate right testicle swelling first noticed twodays ago. Pt reports no associated sx. He denies fever, SOB, NV, abd pain, or testicle pain. There are no alleviating or exacerbating factors. Ptreports that he has a 2 year h/o enlarged testicle that was surgically correctedby Dr. Bray a few days ago but has returned and its current state is significantly worse than prior to procedure. 100ML Opti 320 via 20Gright hand. To include testicles per ERPadditional imaging performed due to thesize of the patientDuration: 2 days TECHNIQUE: CT scan of the abdomen and pelvis performed with intravenousand without oral contrast using helical scanning technique with dynamic intravenous contrast injection. Reconstructed coronal and sagittal MPRimages reviewed. All images stored on PACS. Automated exposure control was used as a dose optimization technique forthis examination. CONTRAST TYPE/DOSE: 100 of opti 320 injected via right hand COMPARISON: None available LOWER CHEST: Mild reticular opacities within the lung bases are compatible with subsegmental atelectasis. LIVER: Hypoenhancing mass within the inferior right hepatic lobe isnoted, compatible with a cyst as it measures fluid density. GALLBLADDER: Moderately distended with fluid, otherwise unremarkable. BILE DUCTS: No intrahepatic or extrahepatic ductal dilatation. SPLEEN: Normal size. No focal lesions. PANCREAS: There is no evidence of a pancreatic mass or significant peripancreatic inflammation. ADRENALS: Normal. KIDNEYS/URINARY TRACT: Kidneys demonstrate customary postcontrast enhancement. There is no evidence of hydronephrosis. Bladder is decompressed. GI: There is no evidence bowel obstruction. A portion of the leftlateral abdomen is excluded from view. Appendix originates around axial image 99,and is within normal limits in size. There is no evidence of small-bowel obstruction. PERITONEUM: No ascites or free air. RETROPERITONEUM: No mass or adenopathy. REPRODUCTIVE: There is prominent scrotal soft tissue swelling and fluid,more pronounced on the right. Several foci of air are noted within theperineum, and the right aspect of the scrotum. There is gas within what is presumedto be the right testicle, likely related to history of partial orchiectomy. Left-sided hydrocele is noted, less pronounced. VASCULATURE: Aorta demonstrates normal course and caliber. MUSCULOSKELETAL: Mild-moderate osteoarthritic changes of the spine are present. OTHER: No other abnormality. IMPRESSION: 1. Prominent right-sided scrotal soft tissue swelling and fluid. 2. Foci of air within the right scrotum, compatible with recentsurgery. 3. There appears to be air within the remnant of the right testicle, compatible with the history of partial orchiectomy. Correlation withsurgical history is recommended. THIS IS AN ELECTRONICALLY VERIFIED FINAL REPORT 04/16/2020 5:21 AM - Electronically signed by Forrest Mcneill M.D. AT: AT Report ID: [id number] Reading Location: [id number] Nancy Lopez MD IMG CT PROCEDURES Final Result * DNA STOOL (12/19/2019) [facility] COLOGUARD Normal Historical Provider HEALTH MAINTENANCE Final Result * Hepatitis C antibody (11/20/2019 2:25 PM ELECTRONICS DETAIL DRAFTSPERSON) [facility] Hep C Ab Negative Negative [facility] ([place]) Comment:Testing performed by : [facility], [address] [place] [address], [facility] Blood specimen (specimen) 11/20/2019 2:25 PM ELECTRONICS DETAIL DRAFTSPERSON 11/21/2019 11:21 AM ELECTRONICS DETAIL DRAFTSPERSON Alma Delia Antonio DO LAB MICROBIOLOGY - GENERAL ORDERABLES Final Result [facility] ([place]) [address] [facility] [place] [address] * PSA screen (10/04/2017 1:55 PM ELECTRONICS DETAIL DRAFTSPERSON) [facility] PSA 0.6 < OR = 4.0 ng/mL [facility] [place] Comment: The total PSA value from this assay system is standardized against the WHO standard. The test result will be approximately 20% lower when compared to the equimolar-standardized total PSA (Parul Luly). Comparison of serial PSA results should be interpreted with this fact in mind. This test was performed using the Siemens chemiluminescent method. Values obtained from different assay methods cannot be used interchangeably. PSA levels, regardless of value, should not be interpreted as absolute evidence of the presence or absence of disease. 10/04/2017 1:55 PM ELECTRONICS DETAIL DRAFTSPERSON 10/04/2017 1:56 PM ELECTRONICS DETAIL DRAFTSPERSON Narrative [facility] - 10/05/2017 6:42 AM ELECTRONICS DETAIL DRAFTSPERSON FASTING:UNKNOWN FASTING: UNKNOWN Resulting Agency Comment Performing Organization Information: Site ID: [id number] Name: Stella Correa Address: [address] [place] [address] Director: Fritz Lopez D.O., MPH Danyel Joyce MD LAB BLOOD ORDERABLES Final Result [facility] from Last 3 Months or Most Recently Relevant to Health Maintenance [place] [address] [place] [address] MEDICARE [facility] Address: [address] [address] [place] [address] [facility] IDPA MEDICARE IDPA MEDICARE Advance Directives For more information, please contact: [phone] * Full Code (Latest Code Status on File) Date Activated Date Inactivated Comments 01/30/2023 4:35 PM 02/03/2023 3:56 PM Healthcare Agents on File Name Relationship Healthcare Agent [facility] Communication Mira Guerrero Friend Health Care Agent Care Teams Wire Coiler Relationship Specialty Start Date End Date Nav Love MD PCP - General Family Practice 01/30/23 Tash Marr, PT Physical Therapist Physical Therapy 11/05/17 Angel Youngblood MD [address] [place] [address] Surgeon Orthopedic Surgery 10/30/19 Francesco Camara, PT Physical Therapist Physical Therapy 07/10/22
--- OUTSIDE RECORDS SUMMARY | 2025-05-21 13:41 | XMS_ITS | Referral Summary ---
Author Organization [facility] Building B Address [address] [place] [address] Care Team Providers Care Seed Laboratory Technician Name Role Phone Tash Marr PT Unavailable Unavailable Angel Youngblood MD Unavailable [phone] Francesco Camara PT Unavailable Unavailable Nav Love MD Primary Care Provider [phone] Allergies Active Allergy Reactions Criticality Noted Date [...] (03/22/2020): Added automatically from request for surgery [id number] Testicular pain, unspecified 12/13/2019 Elevated glucose 12/04/2019 Chronic gout of multiple sites 11/20/2019 Assessment & Plan (11/20/2019 2:21 PM TRANSFER IRON OPERATOR): Clinically resolved according to patient. Labs ordered. He discontinued his allopurinol on his on, a while ago. Hypertension, essential 11/20/2019 Assessment & Plan (11/20/2019 2:20 PM TRANSFER IRON OPERATOR): Clinically improved. Decrease losartan 100 mg every day to 50 mg every day. Pure hypercholesterolemia 11/20/2019 Assessment & Plan (11/20/2019 2:20 PM TRANSFER IRON OPERATOR): Cont dietary modifications. Labs ordered. Class 3 severe obesity due t o excess calories with serious comorbidity and body mass index (BMI) of 60.0 to 69.9 in adult 11/20/2019 Assessment & Plan (11/20/2019 2:22 PM TRANSFER IRON OPERATOR): Did not weigh today. Encouraged dietary modifications [...] Split, Intramuscular Influenza, Unspecified 09/01/2019 Tdap 03/15/2018 Social History Tobacco Use Types Packs/Day Years [...] on file Legal Sex Male 2:57 AM TRANSFER IRON OPERATOR Gender Identity Male 04/21/2020 2:30 PM CDT Sexual Orientation Straight 03/13/2020 1: 43 PM CDT Last Filed Vital Signs Vital Sign Reading [...] 04/03/2024 2:20 PM CDT Plan of Treatment Not on file Procedures Procedure Name Priority Date/Time Associated Diagnosis Comments HEMOGLOBIN A1C Routine 01/31/2023 2:16 AM CDT LIPID PANEL Routine 01/31/2023 2:16 AM CDT EGFR STAT 01/30/2023 3:[address] ABDOMEN PELVIS W CONTRAST ED 04/16/2020 4:46 AM CDT HM DNA STOOL Routine 12/19/2019 HEPATITIS C ANTIBODY Routine 11/20/2019 2:25 PM TRANSFER IRON OPERATOR Encounter for hepatitis C screening test for low risk patient PSA SCREEN Routine 10/04/2017 1:55 PM TRANSFER IRON OPERATOR from Last 3 Months or Most Recently Relevant to Health Maintenance Results * (ABNORMAL) Hemoglobin A1c (01/31/2023 2:16 AM CDT) Hgb A1C 7.8(H) 4.0 - 5.6 % [facility] (IR[facility]) Estimated Average Glucose 177 mg/dL [facility] (IRMA) Comment: The ADA recommends reporting an estimated Average Glucose (eAG) with all Hemoglobin A1c results using the equation derived from a study of 507 normal and diabetic adults. Minority populations were underrepresented and children were not included. (Diabetes Care 31:7991-9194, 2007). The eAG is not equivalent to a fasting glucose. Blood 01/31/2023 2:16 AM CDT 01/31/2023 4:20 AM CDT us Velvet Abraham MD LAB BLOOD ORDERABLE S Final Result [facility] (IR[facility]) 1 [facility] Department of Laboratories [place], [place] [id number] * (ABNORMAL) Lipid panel (01/31/2023 2:16 AM CDT) Cholesterol 189 30 - 199 mg/dL [facility] ([facility]) Comment: Interpretive Data [...] revised on 2018. HDL 36(L) >=40 mg/dL [facility] ([facility]) Comment: Interpretive Data [...] 2018. LDL, calculated 121 <=129 mg/dL [facility] ([facility]) Comment: Interpretive Data [...] revised on 2018. Non-HDL Cholesterol 153 mg/dL [facility] ([facility]) Comment: Interpretive Data [...] revised on 2018. Chol/HDL ratio 5 MAG[facility] (IRMA) Blood 01/31/2023 2:16 AM CDT 01/31/2023 4:20 AM CDT Velvet Abraham MD LAB BLOOD ORDERABLE S Final Result [facility] ([facility]) 1 [facility] Department [place] [address] * eGFR (01/30/2023 3:51 PM CDT) eGFR 97 mL/min/1. 73 m2 [facility] ([facility]) Comment: Interpretive Data Reference Interval [...] of Race in Diagnosing Kidney Disease, JASN 202). The CKD-EPI equation should not be used for patients with unstable renal function and has not been validated in children and those over 70. Current interpretive data was last reviewed 2021. Blood 01/30/2023 3:51 PM CDT 01/30/2023 3:54 PM CDT Velvet Abraham MD LAB BLOOD ORDERABLE S Final Result [facility]) 1 [facility] Department [place] [address] * CT Abdomen Pelvis W Contrast (04/16/2020 [...] Forrest Mcneill M.D. AT: AT Report ID: [id number] Reading Location: [id number] [facility] 04/16/2020 5:24 AM CDT [facility] Imaging Result Name: AAMIR LINDA Ordering Phys: NANCY LOPEZ Age: 64 Date of : 1955 Accession Number: [id number] Date of Service: 04/16/2020 Gender: M EXAM [...] Procedure Note Forrest Mcneill MD - 04/16/2020 [facility] Imaging Result Name: AAMIR LINDA Ordering Phys: NANCY LOPEZ Age: 64 Date of : 1955 Accession Number: [id number] Date of Service: 04/16/2020 Gender: M EXAM [...] Forrest Mcneill M.D. AT: AT Report ID: [id number] Reading Location: [id number] Nancy Lopez MD IMG CT PROCEDURES Final Result * DNA STOOL (12/19/2019) [facility] COLOGUARD Normal Historical Provider HEALTH MAINTENANCE Final Result * Hepatitis C antibody (11/20/2019 2:25 PM TRANSFER IRON OPERATOR) [facility] Hep C Ab Negative Negative [facility] (IRMA) Comment:Testing performed by : [facility], [address] [place] [address], [place], [place]., [facility] Blood specimen (specimen) 11/20/2019 2:25 PM TRANSFER IRON OPERATOR 11/21/2019 11:21 AM TRANSFER IRON OPERATOR Alma Delia Antonio DO LAB MICROBIOLOGY - GENERAL ORDERABLES Final Result [facility] ([place]) 1 [facility] Department [place] [address] * PSA screen (10/04/2017 1:55 PM TRANSFER IRON OPERATOR) [facility] PSA 0.6 < OR = 4.0 ng/mL [facility] [place] Comment: The total PSA value from this assay system is standardized against the WHO standard. The test result will be approximately 20% lower when compared to the equimolar-standardized total PSA ([place]). Comparison of serial PSA results should be interpreted with this fact in mind. This test was performed using the Siemens chemiluminescent method. Values obtained from different assay methods cannot be used interchangeably. PSA levels, regardless of value, should not be interpreted as absolute evidence of the presence or absence of disease. 10/04/2017 1:55 PM TRANSFER IRON OPERATOR 10/04/2017 1:56 PM TRANSFER IRON OPERATOR Narrative [facility] - 10/05/2017 6:42 AM TRANSFER IRON OPERATOR FASTING:UNKNOWN FASTING: UNKNOWN Resulting Agency Comment Performing Organization Information: Site ID: [id number] Name: Tanvi Correa Address: [address] [address] Director: Fritz Lopez D.O., MPH Danyel Joyce MD LAB BLOOD ORDERABLES Final Result [facility] [place] from Last 3 Months or Most Recently Relevant to Health Maintenance [place] [address] [place] [address] MEDICARE [facility] Address: [address] [address] [place] [address] [facility] OTHER Address: [address] [address] [facility] MEDICARE [facility] MEDICARE Advance Directives For more information, please contact: [phone] * Full Code (Latest Code Status on File) Date Activated Date Inactivated Comments 01/30/2023 4:35 PM 02/03/2023 3:56 PM Healthcare Agents on File Name Relationship Healthcare Agent [facility] Communication Mira Guerrero Friend Health Care Agent Care Teams Seed Laboratory Technician Relationship Specialty Start Date End Date Nav Love MD PCP - General Family Practice 01/30/23 Tash Marr, PT Physical Therapist Physical Therapy 11/05/17 Angel Youngblood MD [address] [place] [address] [place] [id number] Surgeon Orthopedic Surgery 10/30/19 Francesco Camara, PT Physical Therapist Physical Therapy 07/10/22
--- OUTSIDE RECORDS SUMMARY | 2025-05-21 13:41 | XMS_ITS | Encounter Summary ---
Author Organization [facility] Healthcare Address [address] [place] [address] Care Team Providers Care Fire Extinguisher Charger Name Role Phone TejinderTash rubin PT Unavailable Unavailable Angel Youngblood MD Unavailable [phone] Alma Delia Antonio DO Primary Care Provider [phone] Francesco Camara PT Unavailable Unavailable Nav Love MD Primary Care Provider [phone] Encounter Details Date Type Department Care Team (Late st Contact Info) Description 03/04/2020 Telephone [facility] [address] [place] [address] Xochitl Mckeon, [facility] Social History Tobacco Use Types Packs/Day Years Used Date Smoking Tobacco: Never Smokeless Tobacco: Never Alcohol Use Standard Drinks/Week Comments No 0 (1 standard drink = 0.6 oz pur e alcohol) PHQ-2 Answer Date Recorded PHQ-2 Score 0 11/20/2019 Sex and Gender Information Value Date Recorded Sex Assigned at Not on file Legal Sex Male 2:57 AM PLAYER PIANO TECHNICIAN Gender Identity Male 04/21/2020 2:30 PM CDT Sexual Orientation Straight 03/13/2020 1: 43 PM CDT documented as of this encounter Plan of Treatment Not on file documented as of this encounter Visit Diagnoses Not on filedocumented in this encounter Care Teams Fire Extinguisher Charger Relationship Specialty Start Date End Date Alma Delia Antonio DO [address] [place] [address] PCP - General Family Medicine 11/20/19 01/29/23 Nav Love MD PCP - General Family Practice 01/30/23 Tash Marr, PT Physical Therapist Physical Therapy 11/05/17 Angel Youngblood MD [address] [place] [address] Surgeon Orthopedic Surgery 10/30/19 Francesco Camara, PT Physical Therapist Physical Therapy 07/10/22 documented as of this encounter
[2025-05-21 19:10] LABS: Hematocrit 44.6 % (42.0-52.0); Hemoglobin 14.1 g/dL (14.0-18.0); Immature Granulocyte Percent A 0.5 % (0-0.5); Lymphocytes Absolute Auto 2.56 K/mm3 (0.9-3.2); Mean Corpuscular HGB Conc 31.6 g/dl (32-36); Mean Corpuscular Hemoglobin 28.1 pg (26-34); Mean Corpuscular Volume 89.0 fl (80-100); Nucleated Red Blood Cells Absolute Auto 0.000 K/mm3 (0.0-0.012); Nucleated Red Blood Cells Perc 0.0 % (0.0-0.2); Platelet Count Result 207 k/mm3 (150-375); Red Blood Count 5.01 M/mm3 (4.6-6.20); White Blood Count 8.1 K/mm3 (4.5-10.0)
[2025-05-21 19:13] LABS: Alanine Aminotransferase 14 U/L (6-50); Albumin Level 3.8 g/dL (3.5-5.1); Alkaline Phosphatase 90 U/L (38-126); Anion Gap 7 mmol/L (4-12); Aspartate Amino Transferase 38 U/L (17-59); Bilirubin,Total 0.8 mg/dL (0.2-1.3); Blood Urea Nitrogen 15 mg/dL (9-20); Calcium 8.9 mg/dL (8.4-10.2); Carbon Dioxide 25 mmol/L (22-30); Chloride 106 mmol/L (98-107); Cholesterol 195 mg/dL (0-200); Estimated Glomerular Filt Rate > 60; Glucose 116 mg/dL (65-110); HDL Direct 35 mg/dL; Potassium 4.1 mmol/L (3.4-5.0); Sodium 138 mmol/L (137-145); Total Protein 7.1 g/dL (6.3-8.2); Triglycerides 124 mg/dL (<150)
[2025-05-21 19:24] LABS: Hemoglobin A1C 4.9 % (<5.7)
[2025-05-21 19:27] LABS: MALB Creatinine Ratio 21.1 mg/g (0-30)
== END 2025-05-21 13:35 | disposition home or self-care (01) ==
PROVIDERS: PCP Family Medicine; Visit Provider Family Medicine
DX: E55.9 Vitamin D deficiency, unspecified (principal); I10 Essential (primary) hypertension; E11.9 Type 2 diabetes mellitus without complications; E66.9 Obesity, unspecified; D64.9 Anemia, unspecified; M16.11 Unilateral primary osteoarthritis, right hip; I63.9 Cerebral infarction, unspecified; Z01.812 Encounter for preprocedural laboratory examination
CPT/HCPCS: 36415; 80053; 80061; 82043; 82172; 82306; 83036; 85025